=== PATIENT | male | born 1935 | race Two or more races ===

== ENCOUNTER 2019-05-31 15:46 | Inpatient (IN) | payer OTHER, MEDICAID ==
[~2019-05-31] VITALS: Ht 162.6 cm; Wt 86.2 kg
--- NOTE | 2019-05-31 16:05 | NUR ---
PATIENT ARRIVED AT UNIT, TRANSFERRED FROM [facility], WITH REPORT OF PATIENT HAVING SOB X 1 DAY. PATIENT A/O X 3, URDU SPEAKING. DENIES ANY PAIN OR DISCOMFORT. PATIENT CONNECTED TO MONITOR. O2 SAT 100% IN 2L O2 VIA NC. WILL CONTINUE TO MONITOR
[2019-05-31] MEDS ORDERED: BENZ-13 PO (16:14)
[2019-05-31] MEDS ORDERED: TIOT18CA3 IH (16:14)
[2019-05-31] MEDS ORDERED: TAMS-12 PO (16:14)
[2019-05-31] MEDS ORDERED: PIPE4.5V3 IV (16:14)
[2019-05-31] MEDS ORDERED: ROFL500T PO (16:14)
[2019-05-31] MEDS ORDERED: DUTA0.5C PO (16:14)
[2019-05-31] MEDS ORDERED: MELA3TAB PO (16:14)
[2019-05-31] MEDS ORDERED: FERR325T23 PO (16:14)
[2019-05-31] MEDS ORDERED: BUDE0.5A4 IH (16:14)
[2019-05-31] MEDS ORDERED: SENN-168 PO (16:14)
[2019-05-31] MEDS ORDERED: TRAM50TA2 PO (16:14)
[2019-05-31] MEDS ORDERED: SIMV10TA6 PO (16:14)
[2019-05-31] MEDS ORDERED: ACET-868 PO (16:14)
[2019-05-31] MEDS ORDERED: AMLO10TA7 PO (16:14)
[2019-05-31] MEDS ORDERED: LEVA0.6320 IH (16:14)
[2019-05-31] MEDS ORDERED: ASPI-1152 PO (16:14)
[2019-05-31] MEDS ORDERED: MULT-447 PO (16:14)
[2019-05-31] MEDS ORDERED: NA P133E RC (16:14)
[2019-05-31] MEDS ORDERED: LACT1CAP71 PO (16:14)
[2019-05-31] MEDS ORDERED: GUAI120013 PO (16:14)
[2019-05-31] MEDS ORDERED: FLUT1BLS IH (16:14)
[2019-05-31] MEDS ORDERED: MAGN400O6 PO (16:14)
[2019-05-31] MEDS ORDERED: AMIN30LI2 PO (16:14)
[2019-05-31] MEDS ORDERED: PRED20TA PO (16:14)
[2019-05-31] MEDS ORDERED: BISA10SU11 RC (16:14)
[2019-05-31] MEDS ORDERED: OMEP40CA37 PO (16:14)
[2019-05-31] MEDS ORDERED: IPRA0.2S9 IH (16:14)
[2019-05-31] MEDS ORDERED: IPRATROPIUM NEB FS 0.5 MG/2.5 ML AMPUL.NEB ONE (16:21)
[2019-05-31] MEDS ORDERED: ALBUTEROL FS 2.5 MG/3 ML VIAL.NEB ONE (16:21)
[2019-05-31 16:24] LABS: BASOPHILS % (AUTO) 0.2 % (0.0-2.0); HEMATOCRIT 25 % (39-51); HEMOGLOBIN 8.1 g/dL (13.5-17.5); LYMPHOCYTES # (AUTO) 0.8 /CMM (0.8-4.8); LYMPHOCYTES % (AUTO) 8.3 % (20.0-44.0); MEAN CORPUSCULAR HGB CONC 32 g/dl (31.0-36.0); MEAN CORPUSCULAR VOLUME 96 fL (80-96); MONOCYTES # (AUTO) 0.3 /CMM (0.1-1.30); MONOCYTES % (AUTO) 3.2 % (2.0-12.0); NEUTROPHILS # (AUTO) 8.6 /CMM (1.8-8.9); NEUTROPHILS % (AUTO) 88.3 % (43.0-81.0); PLATELET COUNT (AUTO) 106 /CMM (150-450); RED BLOOD CELL COUNT(AUTO) 2.58 MIL/uL (4.5-6.0); WHITE BLOOD COUNT (AUTO) 9.8 K/uL (4.3-11.0)
[2019-05-31] MEDS ORDERED: IPRATROPIUM NEB FS 0.5 MG/2.5 ML AMPUL.NEB NEB ONE (16:30)
[2019-05-31] MEDS ORDERED: ALBUTEROL FS 2.5 MG/3 ML VIAL.NEB NEB ONE (16:30)
[2019-05-31 17:26] LABS: ALANINE AMINOTRANSFERASE 31 U/L (12-78); ALBUMIN 2.1 g/dL (3.4-5.0); ALKALINE PHOSPHATASE 42 U/L (46-116); ASPARTATE AMINOTRANSFERASE 22 U/L (15-37); B-TYPE NATRIURETIC PEPTIDE 972 PG/ML (0-125); BILIRUBIN,DIRECT 0.1 mg/dL (0.0-0.2); BILIRUBIN,TOTAL 0.4 mg/dL (0.2-1.0); CALCIUM, SERUM 7.7 mg/dL (8.5-10.1); CARBON DIOXIDE 26 mmol/L (21-32); CHLORIDE 103 mmol/L (98-107); CREATININE 0.9 mg/dL (0.6-1.3); GLUCOSE 229 mg/dL (74-106); POTASSIUM 3.8 mmol/L (3.5-5.1); SODIUM SERUM 139 mmol/L (136-145); TOTAL PROTEIN, SERUM 4.5 g/dL (6.4-8.2); UREA NITROGEN, BLOOD 18 mg/dL (7-18)
[2019-05-31 17:50] LABS: BAND % (MANUAL) 3 % (0.0-5.0); LYMPHOCYTES % (MANUAL) 8 % (16-48); MONOCYTES % (MANUAL) 3 % (0-11.0); NEUTROPHILS % (MANUAL) 86 (42-76)
[2019-05-31] MEDS ORDERED: AZITHROMYCIN 500 MG in IV D5W 250 ML IV ONE (18:00)
[2019-05-31] MEDS ORDERED: PIPERACILLIN /TAZOBACTAM 3.375 G in IV D5W 50 ML IV ONE (18:00)
[2019-05-31] MEDS ORDERED: CEFTRIAXONE 1 G in IV D5W 50 ML IV ONE (18:00)
[2019-05-31] MEDS ORDERED: predniSONE 50 MG TABLET PO ONE (18:00)
[2019-05-31] MEDS ORDERED: predniSONE 10 MG TABLET ONE (18:05)
[2019-05-31] MEDS ORDERED: predniSONE 20 MG TABLET ONE (18:05)
--- NOTE | 2019-05-31 18:19 | NUR ---
TALKED TO [facility] HAM PUMPER, SHE WILL WORK ON TRANSFER AND CALL US BACK.
[2019-05-31 18:45] LABS: OCCULT BLOOD STOOL POSITIVE (NEGATIVE)
[2019-05-31] MEDS ORDERED: PANTOPRAZOLE 80 MG in IV NS 0.9% 500 ML IV ONE (19:00)
--- NOTE | 2019-05-31 19:11 | NUR ---
PATIENT LEFT TAKEN BY [facility] VIA GURNEY. LEFT IN STABLE CONDITION
[2019-05-31] MEDS ORDERED: IOHEXOL-350 100 ML VIAL IV ONE (19:13)
[2019-05-31] MEDS ORDERED: CT SWABBABLE VALVE TRANS SET 1 EA INFUS.SET MC ONE (19:13)
[2019-05-31] MEDS ORDERED: IV NS 0.9% 250 ML IV ONE (19:13)
--- NOTE | 2019-05-31 19:20 | NUR ---
REPORT GIVEN TO JOCELYN GUY FOR SAE
[2019-05-31] MEDS ORDERED: IV NS 0.9% 1,000 ML BAG IV ONE (19:30)
[2019-05-31] MEDS ORDERED: PANTOPRAZOLE 40 MG VIAL ONE (19:30)
--- NOTE | 2019-05-31 21:32 | NUR ---
SPOKE WITH LABORATORY TECHNICIAN MYRNA AND INFORMED PT WILL RECEIVE BLOOD TRANSFUSION. PER MYRNA, NO BEDS AVAILABLE AT [facility] AT THIS TIME. MOST LIKELY WILL FIND A BED AFTER TRANSFUSION. WILL FOLLOW UP
--- NOTE | 2019-05-31 21:52 | NUR ---
15 MIN PASS BLOOD TRANSFUSION START TIME. NO ADVERSE REACTION NOTED FROM PT. WILL CONTINUE TO MONITOR
--- NOTE | 2019-05-31 23:51 | NUR ---
PER DATA ADMINISTRATOR MYRNA, STILL NO BED AVAILABLE AT [facility]. WILL FOLLOW UP
--- NOTE | 2019-05-31 23:53 | NUR ---
BLOOD TRANSFUSION COPMPLETED. NO NOTED ADVERSE REACTION FROM BT. PT TOLERATED TRASNFUSSION WELL WITHOUT S/S OF FLUID OVERLOAD. WILL CONTINUE TO MONITOR PT
--- NOTE | 2019-06-01 00:45 | NUR ---
CALLED DRIVE AWAY DRIVER MYRNA TO FOLLOW UP ON BED ASSIGNMENT, NO ANSWER. LEFT MESSAGE. WILL FOLLOW UP
--- NOTE | 2019-06-01 01:15 | NUR ---
MULTIPLE CALLS TO IN FILE OPERATOR FOR UPDATE ON TRANSFER, NO ANSWER. UNABLE TO LEAVE MESSAGE. WILL FOLLOW UP
--- NOTE | 2019-06-01 01:23 | NUR ---
SPOKE WITH JENN NAVARRETE BEVELLER OPERATOR. NO BEDS AVAILABLE AT [facility]. PER ROSALBA, WILL ATTEMPT TO CONTACT OTHER HOSPITALS FOR BEDS.
--- NOTE | 2019-06-01 01:50 | NUR ---
SPOKE WITH [facility] MATERIAL PROCESSOR ROSALBA, NO BEDS AVAILABLE AT OTHER HOSPITALS AT THIS TIME
--- NOTE | 2019-06-01 02:10 | NUR ---
DR. TORO ON THE PHONE WITH DR. TONG
--- NOTE | 2019-06-01 02:55 | NUR ---
BED ASSIGNMENT 308-1
--- NOTE | 2019-06-01 03:25 | NUR ---
PATIENT ADMITTED FROM ER UNDER DR. TONG FOR PNA TO TELEMETRY. NEW ORDERS RECIEVED. PATIENT CC WAS SOB THAT LASTED ALL DAY SO HE REPORTED TO ER. PATIENT HAS ALSO BEEN HAVING BLOODY STOOLS FOR THE LAST 3 DAYS AND TESTED POSITIVE FOR OB IN ER. PATIENT RECIEVED 1 UNIT OF PRBC WHILE IN ER. PATIENT APPEARS MILDLY SOB UPON ARRIVAL BUT STATES THAT HE FEELS BETTER THEN HE DID EARLIER TODAY. PATIENT TACHYPNIC WITH SOMEWHAT LABORED BREATHING. RONCHI BILATERALLY. AT THE BEDSIDE. VSS. REVIEWED POC QUESTIONS CONCERNS ADDRESSED. ORIENTED TO ROOM. BED DOWN LOCKED SRX2 ON 2LNC.
[2019-06-01 04:00] VITALS: BP 140/81
[2019-06-01] MEDS ORDERED: IPRATROPIUM NEB FS 0.5 MG/2.5 ML AMPUL.NEB NEB SCH (04:00)
[2019-06-01] MEDS ORDERED: PIPERACILLIN /TAZOBACTAM 3.375 G in IV D5W 50 ML IV ONE (04:00)
[2019-06-01] MEDS ORDERED: LEVALBUTEROL HCL NEB 1.25 MG/0.5 ML VIAL.NEB NEB PRN ×3 (04:00→04:30)
[2019-06-01] MEDS ORDERED: PIPERACILLIN /TAZOBACTAM 3.375 G VIAL IV ONE (04:20)
[2019-06-01] MEDS ORDERED: PIPERACILLIN /TAZOBACTAM 3.375 G in IV D5W 50 ML IV SCH (05:00)
[2019-06-01 06:33] LABS: BASOPHILS % (AUTO) 0.1 % (0.0-2.0); HEMATOCRIT 27 % (39-51); HEMOGLOBIN 8.6 g/dL (13.5-17.5); LYMPHOCYTES # (AUTO) 0.3 /CMM (0.8-4.8); LYMPHOCYTES % (AUTO) 3.2 % (20.0-44.0); MEAN CORPUSCULAR HGB CONC 33 g/dl (31.0-36.0); MEAN CORPUSCULAR VOLUME 94 fL (80-96); MONOCYTES # (AUTO) 0.3 /CMM (0.1-1.30); MONOCYTES % (AUTO) 3.1 % (2.0-12.0); NEUTROPHILS # (AUTO) 8.3 /CMM (1.8-8.9); NEUTROPHILS % (AUTO) 93.6 % (43.0-81.0); PLATELET COUNT (AUTO) 101 /CMM (150-450); RED BLOOD CELL COUNT(AUTO) 2.81 MIL/uL (4.5-6.0); WHITE BLOOD COUNT (AUTO) 8.8 K/uL (4.3-11.0)
[2019-06-01 06:38] LABS: CALCIUM, SERUM 7.8 mg/dL (8.5-10.1); CREATININE 0.9 mg/dL (0.6-1.3); POTASSIUM 4.4 mmol/L (3.5-5.1)
[2019-06-01] MEDS: IPRATROPIUM NEB FS 0.5 MG/2.5 ML AMPUL.NEB NEB SCH ×3 (07:27→20:18)
[2019-06-01 08:00] VITALS: BP 141/85
[2019-06-01] MEDS ORDERED: NA PHOS,M-B/NA PHOS,DI-BA 1 EA ENEMA RC PRN (08:00)
[2019-06-01] MEDS ORDERED: MISCELLANEOUS MED 1 EA EA XX ONE (08:00)
[2019-06-01] MEDS ORDERED: PANTOPRAZOLE 40 MG TABLET.DR PO SCH (08:00)
[2019-06-01] MEDS ORDERED: BISACODYL SUPP (10 MG) 10 MG/SUPP.RECT SUPP.RECT RC PRN (08:00)
[2019-06-01] MEDS ORDERED: MAGNESIUM HYDROXIDE 30 ML UDC PO PRN (08:00)
[2019-06-01] MEDS ORDERED: TRAMADOL HCL 50 MG TABLET PO PRN (08:00)
[2019-06-01] MEDS ORDERED: ALBUTEROL HALF STRENGTH 1.25 MG/3 ML VIAL.NEB NEB PRN (08:00)
[2019-06-01] MEDS ORDERED: ALBUTEROL FS 2.5 MG/0.5 ML VIAL.NEB NEB PRN (08:00)
[2019-06-01] MEDS ORDERED: ACETAMINOPHEN 325 MG TABLET PO PRN (08:00)
--- NOTE | 2019-06-01 08:00 | NUR ---
SUPERVISOR ASBESTOS TEXTILE NOTES PATIENT IN BED RESTING NO SOB OR ACUTE DISTRESS NOTED. PATIENT ALERT, ORIENTED X3. DENIES ANY PAIN. NOTED WITH SOB AND LABORED BREATHING. PATIENT STATES HE HAS HAD THIS SYMPTOMS FOR ABOUT 3 MONTHS. PATIENT ON 2 LITERS TO OXYGEN CONTINUES. PERIPHERAL IV INTACT PATENT. BED IN LOW LOCKED POSITION. CALL LIGHT WITHIN REACH. WILL CONTINUE TO MONITOR.
[2019-06-01] MEDS: BUDESONIDE RESPULE INH 0.5 MG/2 ML AMPUL.NEB IH SCH ×3 (08:08→19:30)
[2019-06-01] MEDS ORDERED: ACIDOPHILUS/BULGARICUS 1 EACH GRAN.PACK GT SCH (09:00)
[2019-06-01] MEDS ORDERED: TIOTROPIUM BROMIDE 6 CAP/BOX CAP.W.DEV IH SCH (09:00)
[2019-06-01] MEDS ORDERED: FERROUS SULFATE (325 MG) 325 MG/TAB TABLET PO SCH (09:00)
[2019-06-01] MEDS ORDERED: ASPIRIN EC 81 MG TABLET.DR PO SCH (09:00)
[2019-06-01] MEDS ORDERED: DALIRESP 250 MCG PO SCH (09:00)
[2019-06-01] MEDS ORDERED: GUAIFENESIN LA 600 MG TABLET.SA PO SCH (09:00)
[2019-06-01 09:08] LABS: ABG BASE EXCESS -2.6 mmol/L; ABG OXYGEN SATURATION 95.7 % (92.0-98.5); ABG PCO2 31.4 mmHg (35.0-45.0); ABG PO2 81.6 mmHg (75.0-100.0); COHb 0.2 % (0.5-1.5); MetHb 1.2 % (0.0-1.5); O2Hb 94.4 % (94.0-97.0); SITE, ABG Right Radial; VENT MODE, BG 2LPM NASAL CANNULA
[2019-06-01] MEDS: BENZONATATE 100 MG CAPSULE PO SCH ×3 (09:17→17:46)
[2019-06-01] MEDS: ACIDOPHILUS/BULGARICUS 1 EACH TAB.CHEW GT SCH (09:18)
[2019-06-01] MEDS: MULTIVIT W/MINERALS 1 TAB TABLET PO SCH (09:18)
[2019-06-01] MEDS: predniSONE 20 MG TABLET PO SCH (09:18)
[2019-06-01] MEDS: AMLODIPINE BESYLATE 10 MG TABLET PO SCH (09:19)
[2019-06-01] MEDS: PROSOURCE / PROSTAT (PYXIS) 30 ML UDC GT SCH (09:19)
[2019-06-01] MEDS: FLUTICASONE/VILANTEROL 1 EACH BLST.W.DEV IH SCH (09:24)
[2019-06-01] MEDS: PIPERACILLIN /TAZOBACTAM 3.375 G in IV D5W 100 ML IV SCH ×2 (09:24→17:47)
[2019-06-01 09:36] LABS: BAND % (MANUAL) 1 % (0.0-5.0); LYMPHOCYTES % (MANUAL) 3 % (16-48); MONOCYTES % (MANUAL) 8 % (0-11.0); MYELOCYTES % 1 % (0-0); NEUTROPHILS % (MANUAL) 87 (42-76)
[2019-06-01] MEDS: ALBUTEROL HALF STRENGTH 1.25 MG/3 ML VIAL.NEB NEB SCH ×2 (13:11→16:33)
[2019-06-01] MEDS ORDERED: IPRATROPIUM NEB FS 0.5 MG/2.5 ML AMPUL.NEB IH SCH (13:30)
[2019-06-01] MEDS: SOD FERRIC GLUC 125 MG in IV NS 0.9% 100 ML IV SCH (14:59)
[2019-06-01 16:05] VITALS: BP 138/61
[2019-06-01] MEDS: DUTASTERIDE (0.5 MG) 0.5 MG CAPSULE PO SCH (17:46)
[2019-06-01 18:26] LABS: IRON, SERUM 52 ug/dl (50-175); TOTAL IRON BINDING CAPACITY 215 ug/dl (250-450)
[2019-06-01 18:33] LABS: FERRITIN 288 ng/mL (8-388)
--- NOTE | 2019-06-01 19:20 | NUR ---
RN NOTES RECEIVED PT IN BED AWAKE AND ABLE TO MAKE NEEDS KNOWN WITH FAMILY AT BEDSIDE. PT A/O X3 AND SETSWANA SPEAKING. PT DENIES PAIN AT THIS TIME. PT ON 2 LITERS OXYGEN VIA NC AND TOLERATING WELL. PT WITH LAC #18G PATENT AND INTACT AND SL. SAFETY MEASURES IN PLACE WITH BED IN LOWEST LOCKED POSITION WITH SIDE RAILS UP X2. CALL LIGHT WITHIN REACH. WILL CONTINUE TO MONITOR.
--- NOTE | 2019-06-01 19:49 | NUR ---
MS RN NOTES PATIENT IN BED RESTING. FRIEND AT BEDSIDE. PATIENT NOTED WITH NO SOB OR LABORED BREATHING. PERIPHERAL IV INTACT PATENT. ALL DUE MEDICATIONS ADMINISTERED. ALL NEEDS MET. ENDORSED CARE TO PM SHIFT.
--- NOTE | 2019-06-01 20:12 | NUR ---
Q12 PULMICORT NOT GIVEN AT THIS TIME. DRUG NOT AVAILABLE ON THE FLOOR. PULMICORT WAS LAST GIVEN 6 HRS AGO. CHARGE NURSE ZAHIDA IS AWARE. ATROVENT WILL BE GIVEN AT THIS TIME.
[2019-06-01] MEDS: SIMVASTATIN 10 MG TABLET PO SCH (21:23)
[2019-06-01] MEDS: SENNOSIDES 8.6 MG TABLET PO SCH (21:23)
[2019-06-01] MEDS: TAMSULOSIN 0.4 MG CAP.SR.24H PO SCH (21:23)
[2019-06-01] MEDS: SUCRALFATE 1 G/10 ML UDC PO SCH (21:32)
[2019-06-01] MEDS ORDERED: SUCRALFATE 1 G/10 ML UDC GT SCH (22:00)
[2019-06-01 23:29] VITALS: BP 125/76
[2019-06-02] MEDS: PIPERACILLIN /TAZOBACTAM 3.375 G in IV D5W 100 ML IV SCH ×3 (01:30→17:00)
[2019-06-02] MEDS: ALBUTEROL HALF STRENGTH 1.25 MG/3 ML VIAL.NEB NEB SCH ×4 (01:38→20:25)
[2019-06-02] MEDS: IPRATROPIUM NEB FS 0.5 MG/2.5 ML AMPUL.NEB NEB SCH ×4 (01:38→20:25)
[2019-06-02 06:55] LABS: BASOPHILS % (AUTO) 0.1 % (0.0-2.0); EOSINOPHILS % (AUTO) 0.1 % (0.0-6.0); HEMATOCRIT 27 % (39-51); HEMOGLOBIN 8.8 g/dL (13.5-17.5); LYMPHOCYTES # (AUTO) 0.4 /CMM (0.8-4.8); LYMPHOCYTES % (AUTO) 5.5 % (20.0-44.0); MEAN CORPUSCULAR HGB CONC 33 g/dl (31.0-36.0); MEAN CORPUSCULAR VOLUME 93 fL (80-96); MONOCYTES # (AUTO) 0.4 /CMM (0.1-1.30); MONOCYTES % (AUTO) 4.5 % (2.0-12.0); NEUTROPHILS # (AUTO) 7.1 /CMM (1.8-8.9); NEUTROPHILS % (AUTO) 89.8 % (43.0-81.0); PLATELET COUNT (AUTO) 104 /CMM (150-450); RED BLOOD CELL COUNT(AUTO) 2.89 MIL/uL (4.5-6.0); WHITE BLOOD COUNT (AUTO) 7.9 K/uL (4.3-11.0)
[2019-06-02 07:16] LABS: CALCIUM, SERUM 7.9 mg/dL (8.5-10.1); CREATININE 0.8 mg/dL (0.6-1.3); POTASSIUM 3.6 mmol/L (3.5-5.1)
--- NOTE | 2019-06-02 07:37 | NUR ---
RN OPENING NOTE PT WAS RECEIVED IN BED AT LOWEST AND LOCKED POSITION WITH SIDE RAILS UP X2, A/O X3 HUNGARIAN SPEAKING, CURRENT COMPLAINT OF FEELING SHORT BREATH BUT 02 SAT IS WELL AND NOTED TO BE 97% ON 2L VIA NC, PER NIGHT RN HE CALLED RT ABOUT AN HOUR AGO FOR BREATHING TX WILL FOLLOW UP, FRANK COMPLAINTS OF ANY PAIN, IV IS PATENT AND INTACT, SAFETY PRECAUTIONS IN PLACE, CALL LIGHT IN REACH, WILL MONITOR ACCORDINGLY
[2019-06-02 07:58] LABS: BAND % (MANUAL) 3 % (0.0-5.0); LYMPHOCYTES % (MANUAL) 5 % (16-48); MONOCYTES % (MANUAL) 3 % (0-11.0); MYELOCYTES % 3 % (0-0); NEUTROPHILS % (MANUAL) 86 (42-76)
[2019-06-02 08:00] VITALS: BP 120/77
--- NOTE | 2019-06-02 08:02 | NUR ---
RN NOTES PT IN BED AWAKE AND ABLE TO MAKE NEEDS KNOWN. PT A/O X3 AND CHINESE SPEAKING. PT DENIES PAIN AT THIS TIME. PT ON 2 LITERS OXYGEN VIA NC AND TOLERATING WELL. PT WITH LAC #18G, RAC #22 PATENT AND INTACT AND SL. PT KEPT CLEAN, DRY, AND COMFORTABLE. SAFETY MEASURES IN PLACE WITH BED IN LOWEST LOCKED POSITION WITH SIDE RAILS UP X2. CALL LIGHT WITHIN REACH. WILL ENDORSE TO ONCOMING NURSE FOR SAE.
[2019-06-02] MEDS: BUDESONIDE RESPULE INH 0.5 MG/2 ML AMPUL.NEB IH SCH ×2 (08:09→20:43)
--- NOTE | 2019-06-02 08:30 | NUR ---
RN NOTE PT SEEN BY AT THIS TIME, ORDER GIVEN TO COLLECT SPUTUM X3 Q8H AND OKAY FOR THE PT TO RECEIVE THROAT LOZENGE, WILL IMPLEMENT ACCORDINGLY
[2019-06-02] MEDS: PANTOPRAZOLE 40 MG VIAL IV SCH ×2 (08:45→17:02)
[2019-06-02] MEDS: SUCRALFATE 1 G/10 ML UDC PO SCH ×4 (08:45→22:32)
[2019-06-02] MEDS: MULTIVIT W/MINERALS 1 TAB TABLET PO SCH (08:45)
[2019-06-02] MEDS: ACIDOPHILUS/BULGARICUS 1 EACH TAB.CHEW GT SCH (08:45)
[2019-06-02] MEDS: BENZONATATE 100 MG CAPSULE PO SCH ×3 (08:45→17:02)
[2019-06-02] MEDS: predniSONE 20 MG TABLET PO SCH (08:45)
[2019-06-02] MEDS: AMLODIPINE BESYLATE 10 MG TABLET PO SCH (08:46)
[2019-06-02] MEDS: FLUTICASONE/VILANTEROL 1 EACH BLST.W.DEV IH SCH (08:47)
[2019-06-02] MEDS: PROSOURCE / PROSTAT (PYXIS) 30 ML UDC GT SCH (08:49)
[2019-06-02] MEDS ORDERED: MENTHOL/CETYLPYRD (CEPACOL) 1 LOZ LOZENGE PO PRN (09:00)
--- NOTE | 2019-06-02 09:28 | NUR ---
RN NOTE PT NOTED TO BE RESTING COMFORTABLY IN BED AT THIS TIME WITH NO S/S OF ANY DISTRESS NOTED, CURRENTLY BREATHING EVEN AND UNLABORED
[2019-06-02] MEDS: ACETYLCYSTEINE 10% SOLN 400 MG/4 ML VIAL NEB SCH ×2 (12:06→14:55)
--- NOTE | 2019-06-02 13:04 | NUR ---
RN NOTE PT NOTED TO NOT HAVE ANY SPUTUM OR COUGH AT THIS TIME, WILL ATTEMPT AGAIN LATER WHEN PT ABLE
[2019-06-02] MEDS: SOD FERRIC GLUC 125 MG in IV NS 0.9% 100 ML IV SCH (13:35)
--- NOTE | 2019-06-02 13:56 | NUR ---
RN NOTE SPUTUM #1 COLLECTED AT THIS TIME
[2019-06-02 16:00] VITALS: BP 122/54
[2019-06-02] MEDS: DUTASTERIDE (0.5 MG) 0.5 MG CAPSULE PO SCH (17:02)
--- NOTE | 2019-06-02 18:24 | NUR ---
RN CLOSING NOTE PT IN BED AT LOWEST AND LOCKED POSITION WITH SIDE RAILS UP X2, A/O X3 TURKS AND [place]IC[place] ISLANDER SPEAKING, CURRENTLY ON 2L VIA NC SHORT BREATH BUT SATTING WELL, RT CALLED FOR TX BUT INFORMED THAT THEY ARE GIVING REPORT TO NEXT SHIFT, NO COMPLAINTS OF ANY PAIN AT THIS TIME, IV IS PATENT AND INTACT, SAFETY PRECAUTIONS IN PLACE, CALL LIGHT IN REACH, ALL NEEDS ATTENDED TO, WILL ENDORSE TO NIGHT RN FOR SAE.
--- NOTE | 2019-06-02 19:40 | NUR ---
RN OPENING NOTES RECEIVED REPORT FROM [facility] MALENA GODOY. FOUND Pt RESTING IN BED, AWAKE. NO S/S OF ACUTE DISTRESS OR SEVERE SOB NOTED. ON BREATHING TREATMENT Q4H. Pt's FAMILY IS VISITING AT BEDSIDE, DONNED ON PROPER PROTECTIVE GEAR BEFORE ENTERING ROOM. Pt IS STILL ON ISO FOR R/O TB, TEST RESULT STILL PENDING. Pt IS A/OX3, VERBAL, TURKMEN SPEAKING ONLY. Pt WILL BE NPO AFTER MN FOR EGD SCHEDULED FOR TOMORROW 06/03/19. CONSENT SIGNED & PLACED IN CHART. IV ACCESS ON LAC #18G, & RAC #22G, SL. SAFETY MEASURES IN PLACE. BED LOW, LOCKED, HOB ELEVATED, SIDE RAILS UP, CALL LIGHT AND BEDSIDE TABLE WITHIN REACH. WILL CONTINUE TO MONITOR AND ASSESS Pt's CONDITION AND SAFETY THROUGHOUT THE NIGHT.
[2019-06-02 20:00] VITALS: BP 104/63
[2019-06-02] MEDS: POLYETHYLENE GLYCOL 3350 17 GM POWD.PACK PO SCH (22:32)
[2019-06-02] MEDS: CITALOPRAM HYDROBROMIDE 10 MG TABLET PO SCH (22:32)
[2019-06-02] MEDS: SENNOSIDES 8.6 MG TABLET PO SCH (22:32)
[2019-06-02] MEDS: TAMSULOSIN 0.4 MG CAP.SR.24H PO SCH (22:32)
[2019-06-02] MEDS: SIMVASTATIN 10 MG TABLET PO SCH (22:37)
[2019-06-03] MEDS: PIPERACILLIN /TAZOBACTAM 3.375 G in IV D5W 100 ML IV SCH ×3 (01:01→17:09)
[2019-06-03] MEDS: IPRATROPIUM NEB FS 0.5 MG/2.5 ML AMPUL.NEB NEB SCH ×4 (01:10→20:18)
[2019-06-03] MEDS: ALBUTEROL HALF STRENGTH 1.25 MG/3 ML VIAL.NEB NEB SCH ×4 (01:10→20:18)
[2019-06-03] MEDS: ACETYLCYSTEINE 10% SOLN 400 MG/4 ML VIAL NEB SCH ×3 (02:16→14:31)
--- NOTE | 2019-06-03 06:40 | NUR ---
RN CLOSING NOTES NO SIGNIFICANT CHANGES IN Pt's CONDITION. Pt REMAINS STABLE PER BASELINE. NO S/S OF ACUTE DISTRESS OR SOB NOTED DURING THE NIGHT. ALL NEEDS MET AND ATTENDED TO. SAFETY MEASURES IN PLACE. Pt HAS BEEN NPO SINCE MN. EDG SCHEDULED FOR TODAY. WILL ENDORSE TO DAYSHIFT RN FOR Pt's SAE.
[2019-06-03 06:46] LABS: BASOPHILS % (AUTO) 0.1 % (0.0-2.0); EOSINOPHILS % (AUTO) 0.1 % (0.0-6.0); HEMATOCRIT 28 % (39-51); HEMOGLOBIN 8.9 g/dL (13.5-17.5); LYMPHOCYTES # (AUTO) 0.4 /CMM (0.8-4.8); LYMPHOCYTES % (AUTO) 5.6 % (20.0-44.0); MEAN CORPUSCULAR HGB CONC 32 g/dl (31.0-36.0); MEAN CORPUSCULAR VOLUME 93 fL (80-96); MONOCYTES # (AUTO) 0.3 /CMM (0.1-1.30); MONOCYTES % (AUTO) 4.2 % (2.0-12.0); NEUTROPHILS # (AUTO) 6.8 /CMM (1.8-8.9); PLATELET COUNT (AUTO) 108 /CMM (150-450); RED BLOOD CELL COUNT(AUTO) 2.97 MIL/uL (4.5-6.0); WHITE BLOOD COUNT (AUTO) 7.6 K/uL (4.3-11.0)
[2019-06-03 06:56] LABS: CALCIUM, SERUM 7.6 mg/dL (8.5-10.1); CREATININE 0.7 mg/dL (0.6-1.3); POTASSIUM 3.3 mmol/L (3.5-5.1)
--- NOTE | 2019-06-03 07:26 | NUR ---
RN OPENING NOTE PT WAS RECEIVED IN BED AT LOWEST AND LOCKED POSITION WITH SIDE RAILS UP X2, A/O X3 AMHARIC SPEAKING, BREATHING EVEN AND UNLABORED ON 2L VIA NC AT THIS TIME, NO COMPLAINTS OF ANY PAIN, IV IS PATENT AND INTACT, SAFETY PRECAUTIONS IN PLACE, CALL LIGHT IN REACH, WILL MONITOR ACCORDINGLY
[2019-06-03] MEDS: SUCRALFATE 1 G/10 ML UDC PO SCH ×4 (07:30→21:06)
[2019-06-03 08:00] VITALS: BP 119/63
[2019-06-03] MEDS ORDERED: POTASSIUM CHLORIDE 20 MEQ TAB.PRT.SR PO ONE (08:30)
[2019-06-03] MEDS: BUDESONIDE RESPULE INH 0.5 MG/2 ML AMPUL.NEB IH SCH ×2 (08:32→20:18)
--- NOTE | 2019-06-03 08:56 | NUR ---
RN NOTE ISOLATION D/C BY EULALIA STEWARD AT THIS TIME. PT ALSO HAS ORDER FOR EGD, CURRENTLY NPO. AWAITING TO HEAR BACK FROM IF PROCEDURE WILL BE DONE.
[2019-06-03] MEDS: AMLODIPINE BESYLATE 10 MG TABLET PO SCH (09:00)
[2019-06-03] MEDS: MULTIVIT W/MINERALS 1 TAB TABLET PO SCH (09:00)
[2019-06-03] MEDS: predniSONE 20 MG TABLET PO SCH (09:00)
[2019-06-03] MEDS: PROSOURCE / PROSTAT (PYXIS) 30 ML UDC GT SCH (09:00)
[2019-06-03] MEDS: ACIDOPHILUS/BULGARICUS 1 EACH TAB.CHEW GT SCH (09:00)
[2019-06-03] MEDS: BENZONATATE 100 MG CAPSULE PO SCH ×3 (09:00→17:09)
--- NOTE | 2019-06-03 09:10 | NUR ---
RN NOTE SEEN PT AT THIS TIME, HE STATED TO KEEP THE PT NPO AT THIS TIME, HE STATED HE MAY NOT BE ABLE TO DO EGD TODAY BUT TOMORROW. WILL AWAIT FOR FURTHER INSTRUCTIONS
[2019-06-03] MEDS: FLUTICASONE/VILANTEROL 1 EACH BLST.W.DEV IH SCH (09:23)
[2019-06-03] MEDS: PANTOPRAZOLE 40 MG VIAL IV SCH ×2 (09:23→17:09)
[2019-06-03] MEDS: POTASSIUM CL. PREMIX PERIPHER. 50 ML IV SCH ×4 (09:54→12:45)
--- NOTE | 2019-06-03 12:04 | NUR ---
RN NOTE INFORMED BY CUSTOMER SERVICE AGENT DIANE THAT PT WILL HAVE EGD DONE TOMORROW. PT WILL BE NPO AT MIDNIGHT TONIGHT BUT OKAY FOR PT TO EAT NOW
[2019-06-03] MEDS: SOD FERRIC GLUC 125 MG in IV NS 0.9% 100 ML IV SCH (13:53)
[2019-06-03 16:00] VITALS: BP 134/65
[2019-06-03] MEDS: DUTASTERIDE (0.5 MG) 0.5 MG CAPSULE PO SCH (17:09)
--- NOTE | 2019-06-03 18:24 | NUR ---
RN CLOSING NOTE PT IN BED AT LOWEST AND LOCKED POSITION WITH SIDE RAILS UP X2, A/O X3 KOREAN SPEAKING, BREATHING EVEN AND UNLABORED ON 2L VIA NC AT THIS TIME, NO COMPLAINTS OF ANY PAIN, IV IS PATENT AND INTACT, SAFETY PRECAUTIONS IN PLACE, CALL LIGHT IN REACH, ALL NEEDS ATTENDED TO, WILL ENDORSE TO NIGHT RN FOR SAE
--- NOTE | 2019-06-03 19:30 | NUR ---
MS RN OPENING NOTE RECEIVED PATIENT IN BED. A/O X3. ON OXYGEN 2L/MIN VIA NASAL CANNULA. RESPIRATIONS ARE EVEN AND UNLABORED. PATIENT EXPERIENCES SOB WHEN SITTING UP AND WANTS TO STAY LAYING IN BED. NOTED. DENIES PAIN AT THIS TIME. IN NO APPARENT DISTRESS. IV ACCESS IN LAC #22 PATENT AND RUNNING ZOSYN @25ML/HR. BED IS LOW AND LOCKED, HOB 20 DEGREES, SIDE RAILS UP X2. CALL LIGHT WITHIN REACH. WILL CONTINUE TO MONITOR.
[2019-06-03 20:00] VITALS: BP 125/55
[2019-06-03] MEDS: CITALOPRAM HYDROBROMIDE 10 MG TABLET PO SCH (21:06)
[2019-06-03] MEDS: TAMSULOSIN 0.4 MG CAP.SR.24H PO SCH (21:06)
[2019-06-03] MEDS: SIMVASTATIN 10 MG TABLET PO SCH (21:06)
[2019-06-03] MEDS: POLYETHYLENE GLYCOL 3350 17 GM POWD.PACK PO SCH (21:13)
[2019-06-03] MEDS: SENNOSIDES 8.6 MG TABLET PO SCH (21:13)
--- NOTE | 2019-06-03 21:14 | NUR ---
MS RN NOTE PATIENT REFUSED 17 G MIRALAX, AND 17 MG SENEKOT.
--- NOTE | 2019-06-03 21:17 | NUR ---
MS RN NOTE ADMINISTERED PRN TYLENOL 650 MG D/T TEMP 99.1 WILL CONTINUE TO MONITOR.
[2019-06-04] MEDS: PIPERACILLIN /TAZOBACTAM 3.375 G in IV D5W 100 ML IV SCH ×3 (00:35→17:41)
[2019-06-04] MEDS: IPRATROPIUM NEB FS 0.5 MG/2.5 ML AMPUL.NEB NEB SCH ×4 (01:08→19:30)
[2019-06-04] MEDS: ACETYLCYSTEINE 10% SOLN 400 MG/4 ML VIAL NEB SCH ×3 (01:08→14:31)
[2019-06-04] MEDS: ALBUTEROL HALF STRENGTH 1.25 MG/3 ML VIAL.NEB NEB SCH ×4 (01:08→19:30)
--- NOTE | 2019-06-04 06:33 | NUR ---
MS RN OPENING NOTE PATIENT IN BED. A/O X3. MAINTAINED NPO STATUS SINCE 0000. REMAINS ON OXYGEN 2L/MIN VIA NASAL CANNULA. RESPIRATIONS ARE EVEN AND UNLABORED. PATIENT STILL EXPERIENCES SOB WHEN SITTING. RECEIVED BREATHING SCHEDULED TREATMENTS THROUGHT NIGHT. NO C/O PAIN. NO DISTRESS NOTED. IV ACCESS MAINTAINED IN LAC #22 PATENT SALINE LOCKED. BED REMAINS LOW AND LOCKED, HOB 20 DEGREES, SIDE RAILS UP X2, ON 2 PILLOWS. CALL LIGHT WITHIN REACH. WILL ENDORSE TO NEXT SHIFT FOR SAE.
[2019-06-04] MEDS ORDERED: FENTANYL PF 100MCG/2ML AMPUL ONE (06:54)
[2019-06-04 07:19] LABS: BASOPHILS % (AUTO) 0.2 % (0.0-2.0); EOSINOPHILS % (AUTO) 0.2 % (0.0-6.0); HEMATOCRIT 28 % (39-51); HEMOGLOBIN 9.3 g/dL (13.5-17.5); LYMPHOCYTES # (AUTO) 0.4 /CMM (0.8-4.8); MEAN CORPUSCULAR HGB CONC 33 g/dl (31.0-36.0); MEAN CORPUSCULAR VOLUME 94 fL (80-96); MONOCYTES # (AUTO) 0.3 /CMM (0.1-1.30); MONOCYTES % (AUTO) 2.8 % (2.0-12.0); NEUTROPHILS # (AUTO) 8.1 /CMM (1.8-8.9); NEUTROPHILS % (AUTO) 91.8 % (43.0-81.0); PLATELET COUNT (AUTO) 105 /CMM (150-450); RED BLOOD CELL COUNT(AUTO) 2.95 MIL/uL (4.5-6.0); WHITE BLOOD COUNT (AUTO) 8.8 K/uL (4.3-11.0)
[2019-06-04 07:26] LABS: CALCIUM, SERUM 7.3 mg/dL (8.5-10.1); CREATININE 0.7 mg/dL (0.6-1.3); POTASSIUM 3.5 mmol/L (3.5-5.1)
[2019-06-04] MEDS ORDERED: ANESTHESIA TRAY IN PYXIS 1 EA TRAY MC ONE (07:27)
[2019-06-04] MEDS: SUCRALFATE 1 G/10 ML UDC PO SCH ×3 (07:30→17:18)
[2019-06-04] MEDS ORDERED: methylPREDNISolone SOD SUCC 125 MG/2ML VIAL ONE (07:36)
[2019-06-04 07:40] VITALS: BP 123/61
[2019-06-04] MEDS: BUDESONIDE RESPULE INH 0.5 MG/2 ML AMPUL.NEB IH SCH ×2 (07:44→19:30)
--- NOTE | 2019-06-04 08:07 | NUR ---
MS RN OPENING NOTE PATIENT RECEIVED RESTING IN BED. A/O X3. REMAINS NPO SINCE 0000. PATIENT CURRENTLY ON NEBULIZING TREATMENT WITH RT RUSSELL O2 SAT 100% NEB 10L/MIN. PATIENT STILL COMPLAINS OF SOB WHEN SITTING. IV ACCESS LAC #22 CLEAN AND PATENT S/L. BED IN LOWEST POSITION, SIDE RAILSX2, IN UPRIGHT POSITION. CALL LIGHT IS WITHIN REACH AND PATIENT IS AWARE OF HOW TO CALL FOR ASSISTANCE WHEN NEEDED. WILL CONTINUE TO MONITOR.
--- NOTE | 2019-06-04 08:29 | NUR ---
MS RN EGD PATIENT PICKED UP AT 0830 FOR EGD PROCEDURE BY DR. BULLOCK. PATIENT HAS STABLE VITAL SIGNS. DENYING ANY DISTRESS/DISCOMFORT.
[2019-06-04] MEDS ORDERED: PANTOPRAZOLE 40 MG TABLET.DR PO SCH (09:00)
--- NOTE | 2019-06-04 09:30 | NUR ---
MS RN BACK FROM OR PATIENT CAME BACK FROM OR S/P EGD. VITAL SIGNS STABLE, TEMP, 97.8, BP 115/71, PULSE 67, O2 SATURATION >95% ON RA. PATIENT RESTING IN BED. BED IN LOWEST POSITION, SIDE RAILS X2 IN UPRIGHT POSITION, CALL LIGHT WITHIN REACH.
[2019-06-04] MEDS: PROSOURCE / PROSTAT (PYXIS) 30 ML UDC GT SCH (09:44)
[2019-06-04] MEDS: BENZONATATE 100 MG CAPSULE PO SCH ×3 (09:44→17:18)
[2019-06-04] MEDS: MULTIVIT W/MINERALS 1 TAB TABLET PO SCH (09:44)
[2019-06-04] MEDS: predniSONE 20 MG TABLET PO SCH (09:45)
[2019-06-04] MEDS: ACIDOPHILUS/BULGARICUS 1 EACH TAB.CHEW GT SCH (09:45)
[2019-06-04] MEDS: AMLODIPINE BESYLATE 10 MG TABLET PO SCH (09:45)
[2019-06-04] MEDS: FLUTICASONE/VILANTEROL 1 EACH BLST.W.DEV IH SCH (09:48)
[2019-06-04] MEDS: SOD FERRIC GLUC 125 MG in IV NS 0.9% 100 ML IV SCH (14:35)
[2019-06-04 16:00] VITALS: BP 114/69
[2019-06-04] MEDS: DUTASTERIDE (0.5 MG) 0.5 MG CAPSULE PO SCH (17:18)
--- NOTE | 2019-06-04 18:00 | NUR ---
SPOKE TO [facility] MGR,GLADIS x [phone] AND MADE HER AWARE THAT THE PT HAS HIS OWN O2 AND NEBULIZER AT HOME.PT PREFERS TO BE DC HOME THAN TO BE DC IN THE SNF.PT'S ,BIMAL STATED THAT SHE DOESN'T WANT HOME HEALTH FOR THE PT EITHER BECAUSE OF THEIR POOR EXPERIENCE WITH P.T. HOME HEALTH BEFORE WHO DIDN'T DO ANY REHAB ON THE PT AND THE PT JUST SAT IN THE SOFA MOST OF THE TIME, P.T. WILL SPEND 15 MINS WITH THE PT CHATTING AND JUST WAITING FOR HER ROUTE SHEET TO BE SIGNED.BIMAL ALREADY MADE A COMPLAINT TO THE HEAD OF PT'S PREVIOUS HOME HEALTH BUT STILL THE ISSUE WASN'T RESOLVED TILL THE PT WAS DISCHARGE FROM THE HOME HEALTH.CALLED BIMAL,PT'S REGARDING PT'S MED RECONCILIATION UPON DISCHARGE.CALLED PT'S RX TO PT'S HOME PHARMACY:[facility] AND SPOKE TO PHARMACISTANDRADE WHO CONFIRMED THAT SHE RECEIVED THE MED RECON AND WILL DELIVER THE MEDS IN THE PT'S HOME.SPOKE TO [facility] MGR WHO STATED THAT THEY WILL CALL US BACK FOR PT'S ETA.WILL ENDORSE TO THE NEXT SHIFT.PT RESTING IN BED WITH O2 AT 2L/MIN VIA NC.WITH NO SOB/DISTRESS.
--- NOTE | 2019-06-04 19:23 | NUR ---
DISCHARGED PT HOME WITH STABLE V/S VIA AMBULANCE.DENIES PAIN OR DISTRESS.WITH O2 AT 2L/MIN VIA NC.REFUSED PHOTO OF HIS ARM AND WAS RUSHING TO GO HOME.IV H/L REMOVED TO LT AC WITH NO BLEEDING NOTED.
[2019-06-05] MEDS ORDERED: PANTOPRAZOLE 40 MG TABLET.DR PO SCH (09:00)
== END 2019-06-04 19:20 | DRG 191 ==
LOC: ER 15:52 → TELE 06-01 02:59 → MED 06-01 08:52
PROVIDERS: ADMIT Internal Medicine; ATTEND Internal Medicine
PROC: 30233N1 Transfusion of Nonautologous Red Blood Cells into Peripheral Vein, Percutaneous Approach (ICD-10-PCS; 2019-05-31)
PROC: 0DJ08ZZ Inspection of Upper Intestinal Tract, Via Natural or Artificial Opening Endoscopic (ICD-10-PCS; principal; 2019-06-04)
DX: J44.0 Chronic obstructive pulmonary disease with (acute) lower respiratory infection (principal); J96.10 Chronic respiratory failure, unspecified whether with hypoxia or hypercapnia; D62 Acute posthemorrhagic anemia; K29.70 Gastritis, unspecified, without bleeding; N40.0 Benign prostatic hyperplasia without lower urinary tract symptoms; F17.200 Nicotine dependence, unspecified, uncomplicated; I10 Essential (primary) hypertension; E78.5 Hyperlipidemia, unspecified; E87.6 Hypokalemia; F41.9 Anxiety disorder, unspecified; J84.10 Pulmonary fibrosis, unspecified; K21.9 Gastro-esophageal reflux disease without esophagitis; Z99.81 Dependence on supplemental oxygen; Z96.659 Presence of unspecified artificial knee joint; Z79.82 Long term (current) use of aspirin; Z79.899 Other long term (current) drug therapy; I70.0 Atherosclerosis of aorta
CPT/HCPCS: 36415; 36600; 71045-TC; 80048-TC; 80076-TC; 82272-TC; 82728-TC; 82803-TC; 83540-TC; 83605-TC; 83880; 85025-TC; 85730-TC; 86480; 86850-TC; 86921-TC; 87040-TC; 87070-TC; 87081-TC; 93307-TC; 94799-TC; 97112-TC; 97116-TC; 97530-TC; 97535-TC; C9113; G0378; J0696; J2543; J2704; J2916; J2930; J3010; J3480; J7030; J7040; J7050; J7060; P9016-BL; Q9967